=== PATIENT | male | born 1955 | race African-American/Black ===

== ENCOUNTER → 2016-10-06 | Outpatient (CLI) | payer OTHER ==
--- NOTE | 2016-10-06 10:55 | RAD ---
Renal ultrasound, 10/06/2016: History: Chronic kidney disease The right kidney measures 11.6 cm in length while the left kidney measures 10.2 cm. Two small right renal cysts are identified. The largest of these lies in the upper pole and measures 2.2 cm. The renal parenchymal echogenicity is otherwise unremarkable. There is no evidence of hydronephrosis. Limited views of urinary bladder demonstrate a prominent impression upon its posterior wall compatible with moderate prostatic enlargement. The bladder is otherwise unremarkable. IMPRESSION: 1. Small right renal cysts. 2. No evidence of renal obstruction. 3. Nonspecific prostatic enlargement.
== END | disposition home or self-care (01) ==
LOC: US 09:29
PROVIDERS: ATTEND Family Medicine
DX: I12.9 Hypertensive chronic kidney disease with stage 1 through stage 4 chronic kidney disease, or unspecified chronic kidney disease (principal); N18.3 Chronic kidney disease, stage 3 (moderate); N28.1 Cyst of kidney, acquired; N40.0 Benign prostatic hyperplasia without lower urinary tract symptoms
CPT/HCPCS: 76770